=== PATIENT | female | born 1955 | race African-American/Black ===

== ENCOUNTER 2016-06-06 15:49 | Emergency (ER) | payer SELFPAY ==
[~2016-06-06] VITALS: Ht 162.6 cm; Wt 88.5 kg
[2016-06-06 16:08] VITALS: BP 143/90
[2016-06-06] MEDS ORDERED: IBUP-1007 PO (16:31)
[2016-06-06] MEDS ORDERED: METH-37 PO (16:31)
--- NOTE | 2016-06-06 16:31 | PHYS DOC ---
Past Medical History Past Medical History: Hypertension Past Surgical History: No Surgical History Additional Information: 0.5 PPD Alcohol Use: None Drug Use: None Adult General Chief Complaint Chief Complaint: HIP PAIN HPI HPI Patient is a 60 year old female who presents with left hip pain that radiates down the left leg. The pain began this morning. She denies any injury. She is ambulatory. She denies weakness, numbness, incontinence, or saddle anesthesia. She does not have nausea, vomiting, abdominal pain, or urinary symptoms. She does not have a PCP. Review of Systems Review of Systems Constitutional: Denies fever or chills. [] Musculoskeletal: Denies back pain. Reports left hip pain. Integument: Denies rash or skin lesions. [] Neurologic: Denies headache, focal weakness or sensory changes. Denies incontinence or saddle anesthesia. Allergies Allergies Allergies Coded Allergies Type Severity Reaction Last Updated Verified BO Inhibitors Allergy Severe ANGIOEDEMA 06/06/16 Yes Physical Exam Physical Exam Constitutional: Well developed, well nourished, no acute distress, non-toxic appearance. [] HENT: Normocephalic, atraumatic, oropharynx moist. [] Eyes: PERRLA, EOMI, conjunctiva normal, no discharge. [] Neck: Normal range of motion, no tenderness, supple, no stridor. [] Cardiovascular: Heart rate regular rhythm, no murmur. [] Lungs & Thorax: Bilateral breath sounds clear to auscultation without wheezes, rales, or rhonchi. [] Abdomen: Bowel sounds normal, soft, no tenderness, no masses, no pulsatile masses. [] Skin: Warm, dry, no erythema, no rash. [] Back: No midline tenderness, no CVA tenderness. [] Extremities: Left lateral hip tenderness, ROM intact, no edema. 2+ pedal pulses bilaterally. Light touch sensation intact and equal bilaterally proximally and distally. There is tenderness down the lateral side of the left thigh along the ileo-tibial band. Neurologic: Alert and oriented X 3, normal motor function, normal sensory function, no focal deficits noted. [] Psychologic: Affect normal, judgement normal, mood normal. [] Current Patient Data Vital Signs Vital Signs Date Time Temp Pulse Resp B/P Pulse Ox O2 Delivery O2 Flow Rate FiO2 06/06/16 16:08 99.3 94 16 143/90 100 Room Air 99.3 EKG EKG [] Radiology/Procedures Radiology/Procedures [] Course & Med Decision Making Course & Med Decision Making Pertinent Labs and Imaging studies reviewed. (See chart for details) [] Dragon Disclaimer Dragon Disclaimer This electronic medical record was generated, in whole or in part, using a voice recognition dictation system. Departure Departure Impression: Primary Impression: Hip pain, left Additional Impression: Iliotibial band syndrome of left side Disposition: HOME, SELF-CARE Condition: STABLE Referrals: CECE GUILLAUME MD Patient Instructions: Hip Pain, Iliotibial Band Syndrome Additional Instructions: Please take the prescribed medications as directed. Do not drive or operate heavy machinery while taking muscle relaxers. Please follow up with the orthopedic doctor listed below if your pain continues. Return to the emergency department if you have any new or concerning symptoms. Scripts Methocarbamol (Robaxin)500 Mg [id number] Mg PO QID #20 TAB Prov:EDUARDO CASEY 06/06/16 Ibuprofen 600 Mg [id number] Mg PO PRN Q6HRS PRN INFLAMMATION #20 TAB Prov:EDUARDO CASEY 06/06/16 Problem Qualifiers EDUARDO CASEY Jun 06, 2016 16:31
== END 2016-06-06 16:40 | disposition home or self-care (01) ==
LOC: ER 15:49
DX: M25.552 Pain in left hip (principal); M76.32 Iliotibial band syndrome, left leg; I10 Essential (primary) hypertension; F17.200 Nicotine dependence, unspecified, uncomplicated; Z88.8 Allergy status to other drugs, medicaments and biological substances
CPT/HCPCS: 99283